=== PATIENT | female | born 1965 | race Two or more races ===

== ENCOUNTER 2022-10-24 15:11 | Outpatient (REF) | payer OTHER, SELFPAY ==
--- NOTE | ~2022-10-24 | XR_ITS ---
EXAMINATION: LUMBAR SPINE WITH BENDING right knee. Left knee. CLINICAL INFORMATION: Pain pain. Pain. COMPARISON: None TECHNIQUE: 6 views lumbar spine. 3 views right knee. 3 views left knee. FINDINGS: Lumbar spine: There is mild narrowing of the L5-S1 disc space. There is spondylitic change in the lower thoracic and upper lumbar spine. There is however no fracture or destructive process. No spondylolysis or spondylolisthesis. There is minor retrolisthesis L2 upon L3 which is stable throughout wall positioning. No evidence for instability. Left knee: No fracture, dislocation or destructive lesion or joint effusion. Right knee: No fracture, dislocation or destructive lesion or joint effusion. XR/XR lumbar spine 6V w bending IMPRESSION: No acute findings. 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
--- NOTE | ~2022-10-24 | XR_ITS ---
EXAMINATION: LUMBAR SPINE WITH BENDING right knee. Left knee. CLINICAL INFORMATION: Pain pain. Pain. COMPARISON: None TECHNIQUE: 6 views lumbar spine. 3 views right knee. 3 views left knee. FINDINGS: Lumbar spine: There is mild narrowing of the L5-S1 disc space. There is spondylitic change in the lower thoracic and upper lumbar spine. There is however no fracture or destructive process. No spondylolysis or spondylolisthesis. There is minor retrolisthesis L2 upon L3 which is stable throughout wall positioning. No evidence for instability. Left knee: No fracture, dislocation or destructive lesion or joint effusion. Right knee: No fracture, dislocation or destructive lesion or joint effusion. XR/XR knee RT 3V IMPRESSION: No acute findings. 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
--- NOTE | ~2022-10-24 | XR_ITS ---
EXAMINATION: LUMBAR SPINE WITH BENDING right knee. Left knee. CLINICAL INFORMATION: Pain pain. Pain. COMPARISON: None TECHNIQUE: 6 views lumbar spine. 3 views right knee. 3 views left knee. FINDINGS: Lumbar spine: There is mild narrowing of the L5-S1 disc space. There is spondylitic change in the lower thoracic and upper lumbar spine. There is however no fracture or destructive process. No spondylolysis or spondylolisthesis. There is minor retrolisthesis L2 upon L3 which is stable throughout wall positioning. No evidence for instability. Left knee: No fracture, dislocation or destructive lesion or joint effusion. Right knee: No fracture, dislocation or destructive lesion or joint effusion. XR/XR knee LT 3V IMPRESSION: No acute findings. 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
== END 2022-10-24 15:12 | disposition home or self-care (01) ==
LOC: HO.XRAY 15:11
PROVIDERS: PCP Nurse Practitioner Family; Visit Provider Nurse Practitioner Family
DX: M47.26 Other spondylosis with radiculopathy, lumbar region (principal); M48.061 Spinal stenosis, lumbar region without neurogenic claudication; M51.36 Other intervertebral disc degeneration, lumbar region; M25.561 Pain in right knee; M25.562 Pain in left knee; G89.29 Other chronic pain; M17.9 Osteoarthritis of knee, unspecified; M62.830 Muscle spasm of back; R42 Dizziness and giddiness
CPT/HCPCS: 72114; 73562

== ENCOUNTER → 2022-11-28 11:03 | Outpatient (BNVA) | payer OTHER, SELFPAY | PROVIDERS: PCP Nurse Practitioner Family; Visit Provider Nurse Practitioner Family | DX: Z13.89 Encounter for screening for other disorder (principal) ==